=== PATIENT | male | born 1990 | race Caucasian/White ===

== ENCOUNTER 2016-06-21 20:08 | Emergency (ER) | payer BC ==
[~2016-06-21 20:08] MED LIST: FLEXERIL10 MG PO; IBUPROFEN800 MG PO; NO MEDICATIONS
== END 2016-06-21 21:17 | disposition home or self-care (01) ==
LOC: SED 20:08
DX: I10 Essential (primary) hypertension (principal); F17.200 Nicotine dependence, unspecified, uncomplicated; Z88.2 Allergy status to sulfonamides; B34.9 Viral infection, unspecified; F32.9 Major depressive disorder, single episode, unspecified
CPT/HCPCS: 99282; 99283; 99284